=== PATIENT | female | born 1970 | race American Indian/Alaskan Native ===

== ENCOUNTER 2018-04-07 08:40 | Outpatient (CLI) | payer BC ==
--- NOTE | 2018-04-07 09:24 | Mammography Report ---
Screening mammogram: Routine views demonstrates intermediate fibroglandular pattern with a generally symmetric distribution. The fibroglandular tissue in the right retroareolar region is somewhat denser than on the left side but there is no focal mass and no architectural distortion. Diffuse benign-appearing calcifications are present in both breasts. The findings are not otherwise remarkable. CAD used. Impression: Benign breast pattern. Recommendation: Annual mammogram followup. An attempt will be made to obtain this patient's prior exam and is made available a comparison report will be issued. BI-RADS CATEGORY: 2 = Benign ACR BI-RADS MAMMOGRAPHIC CODES: 0 = Needs additional imaging evaluation; 1 = Negative; 2 = Benign; 3 = Probably benign; 4 = Suspicious; 5 = Malignant; 6 = Known biopsy-proven malignancy COMMENT: 1. Dense breast tissue, i.e., adenosis, fibrocystic changes, etc., may obscure an underlying neoplasm. 2. Approximately 10% of cancers are not detected with mammography. 3. A negative mammography report should not delay biopsy if a clinically suspicious mass is present.
== END 2018-04-07 08:41 | disposition home or self-care (01) ==
LOC: SPVWC 08:40
PROVIDERS: ATTEND Internal Medicine
DX: Z12.31 Encounter for screening mammogram for malignant neoplasm of breast (principal)
CPT/HCPCS: 77067

== ENCOUNTER 2020-02-25 10:27 | Outpatient (CLI) | payer BC ==
--- NOTE | 2020-02-26 13:59 | Mammography Report ---
DIGITAL SCREENING MAMMOGRAM WITH CAD, 02/25/2020 INDICATION: Routine screening mammography. TECHNIQUE: Digital bilateral 2D mammography was obtained in the craniocaudal and mediolateral obliq ue projections. This examination was interpreted with the benefit of Computer-Aided Detection analysi s. COMPARISON: 04/07/2018 FINDINGS: Breast Density: There are scattered areas of fibroglandular density. There is no evidence of dominant mass, suspicious calcifications or architectural distortion in eithe r breast. Bilateral changes consistent with history of reduction mammoplasty are again noted. Benign calcifications are present bilaterally. Overall, no interval change. IMPRESSION: No evidence of malignancy. Follow up recommendation: Routine yearly BI-RADS Category 2: Benign. A "normal" or negative report should not discourage follow up or biopsy of a clinically significant f inding. A written summary of these findings will be mailed to the patient. The patient will be entered into a mammography reporting system which will generate a reminder letter for the patient's next appointmen t at the appropriate interval. The [employer] recommends yearly mammograms starting at age 40 and continuing as l ayan as a woman is in good health. Breast MRI is recommended for women with an approximate 20-25% or greater lifetime risk of breast cancer, including women with a strong family history of breast or ova juan cancer or who have been treated for Hodgkin's disease. Signer Name: Micheline Schwazr MD Signed: 02/26/2020 1:55 PM Workstation Name: [id number]
== END 2020-02-25 10:28 | disposition home or self-care (01) ==
LOC: SPVWC 10:27
PROVIDERS: ATTEND Internal Medicine
DX: Z12.31 Encounter for screening mammogram for malignant neoplasm of breast (principal); N64.89 Other specified disorders of breast
CPT/HCPCS: 77067